=== PATIENT | female | born 1935 | race Caucasian/White ===

== ENCOUNTER 2017-11-17 17:41 | Emergency (ER) | payer MEDICARE ==
--- NOTE | 2017-11-17 17:48 | UC ---
Laceration HPI - HPI Summary HPI Summary: Pt presents with rash to b/l axilla. R>L. First noticed 4 days ago. She tells me that she switched [employer]ove deodorants and the night after she used her new one - she noticed redness, burning, and itchiness to right underarm. Stopped using the deodorant and started applying aloe and various other creams. The irritation seems to be getting worse. Has been taking benadryl with good relief of symptoms, but isn't going away completely. Denies recent illness, fever, chills, SOB, or chest pain. - History Of Current Complaint Stated Complaint: SKIN ISSUE Time Seen by Provider: 11/17/17 17:48 Hx Obtained From: Patient Onset/Duration: Gradual Onset Severity: Moderate Pain Intensity: 4 Pain Scale Used: 0-10 Numeric - Allergies/Home Medications Allergies/Adverse Reactions: Allergies Allergy/AdvReac Type Severity Reaction Status Date / Time chlorthalidone Allergy Unknown Verified 11/17/17 18:00 [From [place]] Reaction Details Penicillins Allergy Unknown Verified 11/17/17 18:00 Reaction Details Tetracyclines Allergy Unknown Verified 11/17/17 18:00 Reaction Details HYDROCHLORITHIAZIDE/METHYLDOPA Allergy NECROTIZING Uncoded 11/17/17 18:08 ANGINA Home Medications: Home Medications Aspirin EC TAB* [Ecotrin EC Low Dose 81 MG*] 81 mg PO DAILY 11/17/17 [History Confirmed 11/17/17] Levothyroxine TAB* [Synthroid TAB*] 75 mcg PO DAILY 11/17/17 [History Confirmed 11/17/17] Lisinopril TAB* [Prinivil TAB*] 5 mg PO DAILY 11/17/17 [History Confirmed ] Metoprolol Tartrate TAB* [Lopressor TAB*] 100 mg PO BID 11/17/17 [History Confirmed 11/17/17] Pravastatin (NF) [Pravachol (NF)] 40 mg PO DAILY 11/17/17 [History Confirmed 09/05] Torsemide TAB* [Demadex*] 20 mg PO DAILY 11/17/17 [History Confirmed 11/17/17] amLODIPine TAB* [Norvasc 5 mg TAB*] 10 mg PO DAILY 11/17/17 [History Confirmed 11/17/17] metFORMIN* [Glucophage 500 MG TAB *] 250 mg BID 11/17/17 [History Confirmed 09/05] PMH/Surg Hx/FS Hx/Imm Hx Endocrine History: Diabetes, Hypothyroidism, Dyslipidemia Cardiovascular History: Hypertension - Family History Known Family History: Positive: Unknown - Social History Occupation: Retired Lives: With Family Alcohol Use: Occasionally Substance Use Type: None Smoking Status (MU): Never Smoked Tobacco Review of Systems Constitutional: Negative Skin: Rash - B/L axilla Respiratory: Negative Cardiovascular: Negative Neurovascular: Negative Neurological: Negative Psychological: Negative All Other Systems Reviewed And Are Negative: Yes Physical Exam Triage Information Reviewed: Yes Appearance: Well-Appearing, No Pain Distress, Well-Nourished Neck: Positive: Supple, Nontender, No Lymphadenopathy Respiratory: Positive: Lungs clear, Normal breath sounds, No respiratory distress, No accessory muscle use Cardiovascular: Positive: RRR, No Murmur, Pulses Normal Neurological: Positive: Alert Psychological: Positive: Age Appropriate Behavior Skin: Positive: Other - Moderate erythema and irritation with mild edema to right axilla. Mild on left axilla. Dry and flaking skin. No bleeding, discharge , or induration appreciated. Laceration Course/Dx - Course/Dx Course Of Treatment: Suspect contact dermatitis from her recent change in deodorant. Stop applying OTC creams - Will rx for hydrocortisone cream and have her f/u with her curb supervisor if symptoms persist. - Differential Dx - Laceration/Wound Provider Diagnoses: Contact dermatitis b/l axilla Discharge - Sign-Out/Discharge Documenting (check all that apply): Discharge - Discharge Plan Condition: Stable Disposition: HOME Prescriptions: Hydrocortisone Butyrate 1 applic TOPICAL BID #1 tube Patient Education Materials: Contact Dermatitis (DC) Referrals: Jitendra Guajardo DO [Medical Doctor] - Additional Instructions: If you develop a fever, shortness of breath, chest pain, new or worsening symptoms - please call your PCP or go to the ED. 1) If your symptoms persist, please follow up with your curb supervisor for further treatment. - Billing Disposition and Condition Condition: STABLE Disposition: HOME
[2017-11-17 18:07] VITALS: BP 150/63
== END 2017-11-17 18:29 | disposition home or self-care (01) ==
LOC: UCCORT 17:41
DX: Z88.1 Allergy status to other antibiotic agents (principal); L25.9 Unspecified contact dermatitis, unspecified cause; Z88.0 Allergy status to penicillin; Z88.8 Allergy status to other drugs, medicaments and biological substances; I10 Essential (primary) hypertension; E11.9 Type 2 diabetes mellitus without complications; Z79.84 Long term (current) use of oral hypoglycemic drugs; E03.9 Hypothyroidism, unspecified; E78.5 Hyperlipidemia, unspecified
CPT/HCPCS: 99212; G0463